=== PATIENT | female | born 1965 | race Two or more races ===

== ENCOUNTER 2018-03-24 09:33 | Observation (INO) | payer OTHER ==
[2018-03-24 09:47] VITALS: BMI 28.0
[2018-03-24] MEDS ORDERED: ACETAMINOPHEN 325 MG TABLET (FP) PO ONE (11:32)
--- NOTE | 2018-03-24 11:32 | PDOC ---
History of Present Illness - General History Source: Patient, Family Exam Limitations: No Limitations - History of Present Illness Initial Comments: 03/24/18 11:44 The patient is a 53 year old female, with a significant past medical history of asthma, who presents to the emergency department with 3 days of intermittent lightheadedness and right sided headache. The patient presents with her son who acts as a web content producer of [place]. The patient reports the lightheadedness comes and goes, but is exacerbated when her head is down. She states she notices the symptoms more so when she is working in the [employer]. SHe reports her headache is localized to the right temporal area without radiation. She reports her symptoms are 2/10 in severity. The patient denies room spinning. She denies syncope. The patient denies chest pain, shortness of breath.The patient denies fever, chills, nausea, vomit, diarrhea and constipation.The patient denies dysuria, frequency, urgency and hematuria. Allergies: NKDA Past surgical history: none reported Social history: Pt denies tobacco or ETOH PCP - Dr. Noel <Carmella Sorto - Last Filed: 03/24/18 14:13> - General History Source: Patient Exam Limitations: No Limitations <Angeline Collins - Last Filed: 03/24/18 14:21> - General Chief Complaint: Lightheaded Stated Complaint: LIGHTHEADED Time Seen by Provider: 03/24/18 10:22 Past History <Carmella Sorto - Last Filed: 03/24/18 14:13> - Past Medical History Asthma: Yes COPD: No - Suicide/Smoking/Psychosocial Hx Smoking History: Never smoked Hx Alcohol Use: No Drug/Substance Use Hx: No <Angeline Collins - Last Filed: 03/24/18 14:21> - Past Medical History Allergies/Adverse Reactions: Allergies Allergy/AdvReac Type Severity Reaction Status Date / Time No Known Allergies Allergy Verified 03/24/18 09:47 Home Medications: Ambulatory Orders NK [No Known Home Medication] 03/24/18 Review of Systems - Review of Systems Able to Perform ROS?: Yes Comments:: 03/24/18 11:45 CONSTITUTIONAL: Absent: fever, no chills, no fatigue EYES: Absent: visual changes ENT: Absent: ear pain, no sore throat CARDIOVASCULAR: Absent: chest pain, no palpitations RESPIRATORY: Absent: cough, no SOB GASTROINTESTINAL: Absent: abdominal pain, no nausea, no vomiting, no constipation, no diarrhea GENITOURINARY: Absent: dysuria, no frequency, no hematuria MUSCULOSKELETAL: Absent: back pain, no arthralgia, no myalgia SKIN: Absent: rash NEURO: (+) lightheaded. right headache <KaterinaJocelyn chinanda - Last Filed: 03/24/18 14:13> *Physical Exam - Vital Signs Last Vital Signs Temp Pulse Resp BP Pulse Ox 98.7 F 73 18 147/88 98 03/24/18 09:43 03/24/18 09:43 03/24/18 09:43 03/24/18 09:43 03/24/18 09:43 - Physical Exam Comments: 03/24/18 11:45 GENERAL: The patient is in no acute distress. HEAD: Normal with no signs of trauma. EYES: PERRLA, EOMI, sclera anicteric, conjunctiva clear. ENT: Ears normal, nares patent, oropharynx clear without exudates. Moist mucous membranes. NECK: Normal range of motion, supple without lymphadenopathy, JVD, or masses. LUNGS: Breath sounds equal, clear to auscultation bilaterally. No wheezes, and no crackles. HEART:Regular rate and rhythm, normal S1 and S2 without murmur, rub or gallop. ABDOMEN: Soft, nontender, normoactive bowel sounds. No guarding, no rebound. No masses palpable. EXTREMITIES: Normal range of motion, no edema. No clubbing or cyanosis. No erythema, or tenderness. NEUROLOGICAL: Cranial nerves II through XII grossly intact. Normal speech. No focal neurological deficits. MUSCULOSKELETAL: Back non-tender to palpation, no CVA tenderness SKIN: Warm, Dry, normal turgor, no rashes or lesions noted. <Carmella Sorto - Last Filed: 03/24/18 14:13> - Vital Signs Last Vital Signs Temp Pulse Resp BP Pulse Ox 98.7 F 73 18 147/88 98 03/24/18 09:43 03/24/18 09:43 03/24/18 09:43 03/24/18 09:43 03/24/18 09:43 <Angeline Collins - Last Filed: 03/24/18 14:21> ED Treatment Course - LABORATORY CBC & Chemistry Diagram: 03/24/18 12:45 03/24/18 12:45 <Carmella Sorto - Last Filed: 03/24/18 14:13> - LABORATORY CBC & Chemistry Diagram: 03/24/18 12:45 03/24/18 12:45 <Angeline Collins - Last Filed: 03/24/18 14:21> Medical Decision Making - Medical Decision Making EXAM#: TYPE/EXAM: RESULT: [id number] CT/HEAD CT WITHOUT CONTRAST Headache and lightheadedness CT scan of the brain without intravenous contrast. There is mild volume loss and moderate the lateral and third ventricles are relatively more dilated than the fourth. No mass lesion, acute infarct or intracranial hemorrhage are identified. There is no shift of the midline structures. Visualized paranasal sinuses and mastoid air cells are well aerated. The calvarium is intact. IMPRESSION: Mild volume loss. Moderate ventriculomegaly without evidence of subependymal fluid. Neurology consult is suggested and follow-up is needed since no prior is available for comparison. Otherwise, no acute intracranial pathology is identified. Reported By: James Salter MD 03/24/18 1316 03/24/18 14:14 Dr. Morse, Neurology, was consulted on this patient and advises the patient be admitted. 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 Cranial nerves: Cranial nerves II through XII are intact Motor: The upper extremities are 5 over 5 in all muscle groups. The lower extremities are 5 over 5 in all muscle groups. Sensation: Sensation is intact to light touch throughout. Cerebellar: Nbrplt-qwqyww-twak is normal in both upper extremities. Heel-knee- aguilar is normal in both lower extremities. Reflexes: 2+ and symmetric in the upper and lower extremities. Gait: Normal. Heel and toe walking are normal. Tandem gait is normal. Due to: Labs, CT head, Will give Reglan, Tylenol Will re assess 03/24/18 13:21 Laboratory Tests 03/24/18 03/24/18 12:45 12:45 WBC 3.9 L Hgb 14.0 Hct 42.0 Plt Count 250 Neutrophils % 45.1 Lymphocytes % 43.0 H Sodium 144 Potassium 3.6 Chloride 106 Carbon Dioxide 28 BUN 11 Creatinine 0.7 Random Glucose 95 AST 14 L ALT 19 03/24/18 13:33 Ct head: 03/24/18 13:44 EKG: Normal sinus rhythm, rate of 61 bpm, axis is normal, intervals are normal, no ST elevations or depressions, T-wave inversions noted in lead III, V2, V3, no prior EKG for comparison Patient never reported chest pain, shortness of breath. Patient CT temperatures: Mild volume loss, moderate ventriculomegaly without evidence of subependymal fluid. Neuro consult is recommended. 03/24/18 14:16 EKG: Per Dr. Morse, pt should be admitted as this CT finding can not be confirmed on prior CT Case reviewed with Dr. Decker Will admit to her service for MRI with contrast Clinical Impression: headache, initial presentation Dizziness, initial presentation <Angeline Collins - Last Filed: 03/24/18 14:21> *DC/Admit/Observation/Transfer - Attestations Scribe Attestion: 03/24/18 11:46 Documentation prepared by Carmella Sorto, acting as medical delivery technician for Angeline Collins MD. <Carmella Sorto - Last Filed: 03/24/18 14:13> - Discharge Dispostion Decision to Admit order: Yes <Angeline oCllins - Last Filed: 03/24/18 14:21> Diagnosis at time of Disposition: Abnormal head CT, Dizziness Headache Qualifiers: Headache type: unspecified Headache chronicity pattern: unspecified pattern Intractability: not intractable Qualified Code(s): R51 - Headache - Discharge Dispostion Condition at time of disposition: Stable - Referrals Referrals: Caitlin Noel [Primary Care Provider] - - Patient Instructions - Post Discharge Activity
[2018-03-24] MEDS ORDERED: METOCLOPRAMIDE HCL 10 MG TABLET (FP) PO ONE ×2 (11:33→12:02)
[2018-03-24] MEDS ORDERED: ACETAMINOPHEN 325 MG TABLET (FP) ONE (12:02)
[2018-03-24 12:53] LABS: BASO % 1.3 % (0-2.0); EOS % 2.6 % (0-4.5); MCH 30.9 pg (25.7-33.7); MCHC 33.4 g/dl (32.0-36.0); MEAN CELL VOLUME 92.6 fl (80-96); MEAN PLT VOLUME 7.6 fl (7.5-11.1); NEUT % 45.1 % (42.8-82.8); PLATELET COUNT 250 K/MM3 (134-434); RBC 4.53 M/mm3 (3.60-5.2); RDW 13.6 % (11.6-15.6); WHITE BLOOD COUNT 3.9 K/mm3 (4.0-10.0)
[2018-03-24 13:17] LABS: ANION GAP 10 (8-16); BLOOD UREA NITROGEN 11 mg/dL (7-18); CHLORIDE 106 mmol/L (98-107); CO2 28 mmol/L (21-32); CREATININE 0.7 mg/dL (0.55-1.02); GLUCOSE,RANDOM 95 mg/dL (74-106); POTASSIUM 3.6 mmol/L (3.5-5.1); SGOT/AST 14 U/L (15-37); SGPT/ALT 19 U/L (12-78); SODIUM 144 mmol/L (136-145)
[2018-03-24 13:20] LABS: ALK PHOS 86 U/L (45-117); BILIRUBIN,TOTAL 0.6 mg/dL (0.2-1.0)
--- NOTE | 2018-03-24 17:16 | HP ---
Admitting History and Physical - Primary Care Physician PCP: Slick Decker - Admission History of Present Illness: 53 year old female, with a significant past medical history of asthma, who presents to the emergency department with 3 days of intermittent lightheadedness and right sided headache. The patient presents with her son who acts as a photographic process screen maker of [place]. The patient reports the lightheadedness comes and goes, but is exacerbated when her head is down. She states she notices the symptoms more so when she is working in the [employer]. SHe reports her headache is localized to the right temporal area without radiation. She reports her symptoms are 2/10 in severity. The patient denies room spinning. She denies syncope - Past Medical History Pulmonary: Yes: Asthma - Smoking History Smoking history: Never smoked - Alcohol/Substance Use Hx Alcohol Use: No Home Medications - Allergies Allergies/Adverse Reactions: Allergies Allergy/AdvReac Type Severity Reaction Status Date / Time aspirin Allergy Mild Swelling Verified 03/24/18 18:54 - Home Medications Home Medications: Ambulatory Orders Acetaminophen [Tylenol .Regular Strength -] 650 mg PO Q6H PRN tablet 03/25/18 Physical Examination Vital Signs: Vital Signs Temperature 98.7 F 03/24/18 09:43 Pulse Rate 73 03/24/18 09:43 Respiratory Rate 18 03/24/18 09:43 Blood Pressure 147/88 03/24/18 09:43 O2 Sat by Pulse Oximetry (%) 98 03/24/18 09:43 Constitutional: Yes: No Distress HENT: Yes: Atraumatic Neck: Yes: Supple Cardiovascular: Yes: Regular Rate and Rhythm Respiratory: Yes: CTA Bilaterally Gastrointestinal: Yes: Normal Bowel Sounds Extremities: Yes: WNL Edema: No Peripheral Pulses WNL: Yes Neurological: Yes: Alert, Oriented Labs: CBC, BMP 03/24/18 12:45 03/24/18 12:45 Imaging - Results Cat Scan: Report Reviewed Problem List - Problems (1) Abnormal head CT Assessment/Plan: neuro on board mri pending Code(s): R93.0 - ABNORMAL FINDINGS ON DX IMAGING OF SKULL AND HEAD, NEC (2) Dizziness Assessment/Plan: still has sizziness on and off Code(s): R42 - DIZZINESS AND GIDDINESS (3) Headache Assessment/Plan: prn pain meds Code(s): R51 - HEADACHE Qualifiers: Headache type: unspecified Headache chronicity pattern: unspecified pattern Intractability: not intractable Qualified Code(s): R51 - Headache Assessment/Plan Laboratory Tests 03/24/18 03/24/18 12:45 12:45 WBC 3.9 L RBC 4.53 Hgb 14.0 Hct 42.0 MCV 92.6 MCH 30.9 MCHC 33.4 RDW 13.6 Plt Count 250 MPV 7.6 Absolute Neuts (auto) 1.8 Neutrophils % 45.1 Lymphocytes % 43.0 H Monocytes % 8.0 Eosinophils % 2.6 Basophils % 1.3 Nucleated RBC % 0 Sodium 144 Potassium 3.6 Chloride 106 Carbon Dioxide 28 Anion Gap 10 BUN 11 Creatinine 0.7 Creat Clearance w eGFR > 60 Random Glucose 95 Calcium 9.0 Total Bilirubin 0.6 AST 14 L ALT 19 Alkaline Phosphatase 86 Creatine Kinase 93 Troponin I < 0.02 Total Protein 8.0 Albumin 4.0
[2018-03-24] MEDS ORDERED: ACETAMINOPHEN 325 MG TABLET (FP) PO PRN (17:18)
--- NOTE | 2018-03-24 19:36 | CON.NEURO ---
Consult - Past Medical History Pulmonary: Yes: Asthma - Alcohol/Substance Use Hx Alcohol Use: No - Smoking History Smoking history: Never smoked Home Medications - Allergies Allergies/Adverse Reactions: Allergies Allergy/AdvReac Type Severity Reaction Status Date / Time aspirin Allergy Mild Swelling Verified 03/24/18 18:54 - Home Medications Home Medications: Ambulatory Orders NK [No Known Home Medication] 03/24/18 Physical Exam-Neuro Vital Signs: Vital Signs Temperature 98 F 03/24/18 17:47 Pulse Rate 60 03/24/18 17:47 Respiratory Rate 16 03/24/18 17:47 Blood Pressure 156/96 03/24/18 17:47 O2 Sat by Pulse Oximetry (%) 100 03/24/18 17:47 Labs: CBC, BMP 03/24/18 12:45 03/24/18 12:45 Assessment/Plan cc headache adn dizziness for three days HPI 53 year old female history of asthma came with feeling of dizziness and headhace. Patient described dizziness as vertigo and imbalance feeling and at time she feel lightheaded ness. She denies LOC, SEIZURE like activity. There is no fever or trauma or cancer Her ct scan showed there is slight larger ventricles. PMH is normal SH,FH, ROS reviwed in chart - Allergies Allergies/Adverse Reactions: Allergies Allergy/AdvReac Type Severity Reaction Status Date / Time No Known Allergies Allergy Verified 03/24/18 09:47 Neurological Examination Alert oriented x 3 speech is normal follow command , eomi, pupils reactive and no face asymmetry moving all extremity sensation is normal no nystagmus, FTN, Hts is joe Ct head showed slightly larger ventricle than for her age assessment- Dizziness and headhace for three days, suspected hydrocephalus Plan given large ventricle, I suggest do mri of brain with contrast and Neurosurgery consult Thanking you so much Ramy Morse MD
--- NOTE | 2018-03-25 07:19 | PN ---
Progress Note (short form) - Note Progress Note: cc headache adn dizziness for four days 53 year old female history of asthma came with feeling of dizziness and headhace. Patient described dizziness as vertigo and imbalance feeling and at time she feel lightheaded ness. She denies LOC, SEIZURE like activity. There is no fever or trauma or cancer Her ct scan showed there is slight larger ventricles. She is feeling better, headache and dizziness is better Neurological Examination Alert oriented x 3 speech is normal follow command , eomi, pupils reactive and no face asymmetry moving all extremity sensation is normal no nystagmus, FTN, Hts is joe Ct head showed slightly larger ventricle than for her age mri of brain is pending assessment- Dizziness and headhace for three days, symptoms improved and mri of brain pending Plan- disposition as per mri of brain report , and Neurosurgery input Thanking you so much Ramy Morse MD
[2018-03-25 09:24] LABS: EOS % 4.1 % (0-4.5); HEMOGLOBIN 13.8 GM/dL (10.7-15.3); LYMPH % 47.2 % (8-40); MCH 31.1 pg (25.7-33.7); MCHC 33.8 g/dl (32.0-36.0); MEAN CELL VOLUME 91.9 fl (80-96); MEAN PLT VOLUME 7.6 fl (7.5-11.1); MONO % 10.6 % (3.8-10.2); NEUT % 36.1 % (42.8-82.8); PLATELET COUNT 266 K/MM3 (134-434); RBC 4.46 M/mm3 (3.60-5.2); RDW 13.6 % (11.6-15.6); WHITE BLOOD COUNT 3.5 K/mm3 (4.0-10.0)
[2018-03-25 09:43] LABS: CHLORIDE 106 mmol/L (98-107); POTASSIUM 3.5 mmol/L (3.5-5.1); SODIUM 145 mmol/L (136-145)
[2018-03-25 09:53] LABS: ALBUMIN 3.8 g/dl (3.4-5.0); ALK PHOS 85 U/L (45-117); ANION GAP 11 (8-16); BILIRUBIN,TOTAL 0.5 mg/dL (0.2-1.0); BLOOD UREA NITROGEN 14 mg/dL (7-18); CALCIUM 9.1 mg/dL (8.5-10.1); CO2 28 mmol/L (21-32); CREATININE 0.8 mg/dL (0.55-1.02); GLUCOSE,RANDOM 98 mg/dL (74-106); SGOT/AST 14 U/L (15-37); SGPT/ALT 20 U/L (12-78); TOT PROT 7.7 g/dl (6.4-8.2)
--- NOTE | 2018-03-25 16:48 | EKG ---
Test Reason : Blood Pressure : / mmHG Vent. Rate : 061 BPM Atrial Rate : 061 BPM P-R Int : 178 ms QRS Dur : 086 ms QT Int : 396 ms P-R-T Axes : 067 058 002 degrees QTc Int : 398 ms NORMAL SINUS RHYTHM T WAVE ABNORMALITY, CONSIDER ANTERIOR ISCHEMIA ABNORMAL ECG NO PREVIOUS ECGS AVAILABLE Confirmed by ELYSSA PACHECO MD ([id number]) on 03/25/2018 3:48:59 PM Referred By: Confirmed By:ELYSSA PACHECO MD
--- NOTE | 2018-03-25 17:12 | CONSULT ---
Consult - text type - Consultation Consultation Note: NEUROSURGERY CONSULTATION Thank you for this consultation. I am currently not sales commissions analyst and physically unavailable to see/treat the patient, however, I was asked to review the notes and imaging in support of the treating team. Aani Floyd is a 53 year old female who presented to the [facility] ER with 3 days of headaches. She was found to have mild ventriculomegally on Head CT and MRI was ordered. The slight ventricular enlargement is again noted as well as apparent Chiari malformation. Dr. Morse's consultation is noted and I agree that this does not appear to be a condition mandating immediate surgical attention. I am willing to see this patient in the clinic to discuss the potential role of suboccipital decompression for the Chiari malformation. There is no suggestion of transependymal edema which might be seen with acute hydrocephalus.
--- NOTE | 2018-03-25 18:09 | DS ---
Physical Examination Vital Signs: Vital Signs Temperature 98.4 F 03/25/18 15:01 Pulse Rate 69 03/25/18 15:01 Respiratory Rate 18 03/25/18 15:01 Blood Pressure 125/70 03/25/18 15:01 O2 Sat by Pulse Oximetry (%) 99 03/25/18 12:00 Constitutional: Yes: No Distress HENT: Yes: Atraumatic Neck: Yes: Supple Cardiovascular: Yes: Regular Rate and Rhythm Respiratory: Yes: CTA Bilaterally Gastrointestinal: Yes: Normal Bowel Sounds Extremities: Yes: WNL Edema: No Peripheral Pulses WNL: Yes Neurological: Yes: Alert, Oriented Labs: CBC, BMP 03/25/18 09:13 03/25/18 09:13 Discharge Summary Reason For Visit: ABNORMAL CT OF HEAD, DIZZINESS Current Active Problems Abnormal head CT (Acute) Dizziness (Acute) Headache (Acute) Condition: Stable - Instructions Diet, Activity, Other Instructions: Follow up with neurosurgery as out patient Referrals: Uche Padilla MD, FAANS [Staff Physician] - Caitlin Noel [Primary Care Provider] - Disposition: HOME - Home Medications Comprehensive Discharge Medication List: Ambulatory Orders Acetaminophen [Tylenol .Regular Strength -] 650 mg PO Q6H PRN tablet 03/25/18 neurosurgery note reviewed dc home follow up with Neurosurgery in his office
[2018-03-25 18:59] VITALS: BP 140/60; PULSE 88; TEMP 98.6
== END 2018-03-25 18:25 | disposition home or self-care (01) ==
LOC: JER 09:33 → JERBED 14:22
PROVIDERS: ADMIT Internal Medicine; ATTEND Internal Medicine
DX: R93.0 Abnormal findings on diagnostic imaging of skull and head, not elsewhere classified (principal); R42 Dizziness and giddiness; R51 Headache
CPT/HCPCS: 36415; 70450-TC; 70553-TC; 80053; 82550; 84484; 85025; 93005; 93010; 99284-25; G0378

== ENCOUNTER 2018-05-17 13:38 | Emergency (ER) | payer OTHER ==
[2018-05-17 13:44] VITALS: BP 127/69; PULSE 71; TEMP 98.2; BMI 25.5
--- NOTE | 2018-05-17 14:49 | PDOC ---
History of Present Illness - General Chief Complaint: Pain Stated Complaint: ARM PAIN Time Seen by Provider: 05/17/18 14:11 - History of Present Illness Initial Comments: 05/17/18 14:44 53-year-old female without comorbidities presents for evaluation of atraumatic onset of left shoulder pain. Pain was going on about 6 days without any precipitating traumatic event. Past History - Past Medical History Allergies/Adverse Reactions: Allergies Allergy/AdvReac Type Severity Reaction Status Date / Time aspirin Allergy Mild Swelling Verified 05/17/18 13:41 Home Medications: Ambulatory Orders NK [No Known Home Medication] 05/17/18 Asthma: Yes COPD: No - Immunization History Immunization Up to Date: Yes - Suicide/Smoking/Psychosocial Hx Smoking History: Never smoked Hx Alcohol Use: No Drug/Substance Use Hx: No Review of Systems - Review of Systems Musculoskeletal: Yes: Joint Pain All Other Systems: Reviewed and Negative *Physical Exam - Vital Signs Last Vital Signs Temp Pulse Resp BP Pulse Ox 98.2 F 71 18 127/69 98 05/17/18 13:41 05/17/18 13:41 05/17/18 13:41 05/17/18 13:41 05/17/18 13:41 - Physical Exam Comments: 05/17/18 14:45 Left shoulder skin color and temperature are normal range of motion is slightly limited secondary to pain and abduction and external rotation. There is no tenderness. She is unable to tolerate rotator cuff strength testing. Impingement maneuvers are exquisitely positive. Negative Spurling maneuver she has no evidence of instability or gross sensorimotor deficits. She's neurovascular intact. Medical Decision Making - Medical Decision Making Left shoulder strain, impingement syndrome or possibly rotator cuff tear I'll have her follow-up with orthopedic surgery. 05/17/18 14:46 *DC/Admit/Observation/Transfer Diagnosis at time of Disposition: Shoulder strain - Discharge Dispostion Disposition: HOME Condition at time of disposition: Stable Decision to Admit order: No - Referrals Referrals: Caitlin Noel [Primary Care Provider] - Gato Jean MD [Staff Physician] - - Patient Instructions Printed Discharge Instructions: Shoulder Tendinopathy, DI for Shoulder Pain Additional Instructions: Return to the emergency room should symptoms worsen or go unresolved. Follow-up with orthopedic surgery in 2-3 days for further evaluation and treatment options. - Post Discharge Activity
== END 2018-05-17 14:58 | disposition home or self-care (01) ==
LOC: JERFT 13:38
DX: S46.812A Strain of other muscles, fascia and tendons at shoulder and upper arm level, left arm, initial encounter (principal); X58.XXXA Exposure to other specified factors, initial encounter; Y93.89 Activity, other specified; Y92.89 Other specified places as the place of occurrence of the external cause; Y99.8 Other external cause status
CPT/HCPCS: 99281-25